=== PATIENT | female | born 1965 | race Hispanic/Latino ===

== ENCOUNTER 2020-11-29 16:54 | Emergency (ER) | payer BC ==
[~2020-11-29] VITALS: Ht 154.9 cm; Wt 80.3 kg
[2020-11-29] MEDS ORDERED: KETOROLAC TROMETHAMINE 30 MG/ML VIAL IM STA (17:06)
[2020-11-29] MEDS ORDERED: KETOROLAC TROME10 MG PO (17:48)
[2020-11-29 18:47] VITALS: BP 150/70
== END 2020-11-29 18:52 | disposition home or self-care (01) ==
LOC: ER 17:50
DX: M79.652 Pain in left thigh (principal); S76.912A Strain of unspecified muscles, fascia and tendons at thigh level, left thigh, initial encounter; I10 Essential (primary) hypertension; E11.9 Type 2 diabetes mellitus without complications; E78.5 Hyperlipidemia, unspecified
CPT/HCPCS: 73552; 99283; J1885